=== PATIENT | male | born 1975 ===

== ENCOUNTER 2018-11-19 11:16 | Emergency (ER) | payer BC ==
[2018-11-19 11:32] VITALS: BP 161/97
--- NOTE | 2018-11-19 11:37 | UC ---
Elbow Pain - HPI Summary HPI Summary: 43 yo male presents with LEFT elbow redness and swelling for the last 2 days. 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 The worst of the scabs and healing blisters are on her left proximal forearm. Over the last 2 days has noticed redness and swelling to his left elbow that is mildly tender. He has not taken anything OTC for this. Denies fever, chills, or decreased ROM. - History of Current Complaint Chief Complaint: UCGeneralIllness Stated Complaint: JOINT PAIN Time Seen by Provider: 11/19/18 11:36 Hx Obtained From: Patient Severity Initially: Mild Severity Currently: Moderate Pain Intensity: 3 Pain Scale Used: 0-10 Numeric - Allergies/Home Medications Allergies/Adverse Reactions: Allergies Allergy/AdvReac Type Severity Reaction Status Date / Time Penicillins Allergy Rash Verified 11/19/18 11:32 PMH/Surg Hx/FS Hx/Imm Hx - Additional Past Medical History Additional PMH: None - Surgical History Surgical History: None - Family History Known Family History: Positive: None - Social History Occupation: Employed Full-time Lives: With Family Alcohol Use: Occasionally Substance Use Type: None Smoking Status (MU): Never Smoked Tobacco Review of Systems All Other Systems Reviewed And Are Negative: Yes Constitutional: Positive: Negative Skin: Positive: Other - Redness and swelling left elbow Respiratory: Positive: Negative Cardiovascular: Positive: Negative Neurovascular: Positive: Negative Musculoskeletal: Positive: Other: - Redness and swelling left elbow Neurological: Positive: Negative Psychological: Positive: Negative Physical Exam - Summary Physical Exam Summary: GENERAL: NAD. WDWN. No pain distress. SKIN: LEFT ELBOW: Moderate erythema and mild edema at olecranon bursa. Mild warmth. At proximal left forearm that is moderate healing scabs from the parsnip exposure without drainage, edema, erythema, or tenderness. CHEST: No accessory muscle use. Breathing comfortably and in no distress. CV: Pulses intact radial and ulnar. Cap refill <2seconds MSK: LEFT ELBOW: FROM without pain. 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 NEURO: Alert. Sensations intact hand and all fingers. PSYCH: Age appropriate behavior. Triage Information Reviewed: Yes Vital Signs: Initial Vital Signs Temp 99.9 F 11/19/18 11:28 Pulse 90 11/19/18 11:28 Resp 18 11/19/18 11:28 BP 161/97 11/19/18 11:28 Pulse Ox 97 11/19/18 11:28 Vital Signs Reviewed: Yes Elbow Pain Course/Dx - Course Course Of Treatment: Cellulitis vs early septic bursitis. XR elbow: IMPRESSION: SOFT TISSUE SWELLING, NO FOCAL OSSEOUS ABNORMALITY. He is afebrile and has FROM of the elbow with no pain - therefore will treat him with po Clindamycin. Advised that if he develops worsening redness/swelling , develops a fever, or has decreased ROM to the elbow to go to the ER. Pt voiced understanding and agrees with the plan. - Differential Dx/Diagnosis Provider Diagnosis: Cellulitis of left elbow Discharge - Sign-Out/Discharge Documenting (check all that apply): Patient Departure All imaging exams completed and their final reports reviewed: Yes - Discharge Plan Condition: Stable Disposition: HOME Prescriptions: Clindamycin Cap(NF) [Clindamycin Cap 300 mg Cap(NF)] 300 mg PO TID #21 cap Patient Education Materials: Cellulitis (DC), Elbow Bursitis (ED) Referrals: No Primary Care Phys,NOPCP [Primary Care Provider] - Additional Instructions: If you develop a fever, shortness of breath, chest pain, new or worsening symptoms - please call your PCP or go to the ED immediately. Your blood pressure was high at todays visit. Please see your primary provider within 4 weeks for recheck and re-evaluation. IF you develop worsening redness/swelling, develop a fever, or have decreased ROM to the elbow --- please go to the ER immediately. - Billing Disposition and Condition Condition: STABLE Disposition: Home
== END 2018-11-19 12:21 | disposition home or self-care (01) ==
LOC: UCEAST 11:16
DX: L03.114 Cellulitis of left upper limb (principal); Z88.0 Allergy status to penicillin
CPT/HCPCS: 99202; G0463

== ENCOUNTER 2018-12-11 19:40 | Emergency (ER) | payer BC ==
[2018-12-11] MEDS ORDERED: Tetan/Diph/Pertus SYR(Tdap)* 0.5 ML SYR(BOOSTRIX) use SYR IM ONE (20:48)
[2018-12-11] MEDS ORDERED: Sulfamethox/Trimethoprim DS 800/160* TAB PO ONE (21:16)
--- NOTE | 2018-12-11 21:17 | ED ---
Skin Complaint - HPI Summary HPI Summary: Patient complains of triple fishhook embedded in volar surface of distal phalanx of third digit of right hand. Denies any other pain injury or symptoms. Tetanus status unknown. - History of Current Complaint Chief Complaint: EDExtremityUpper Time Seen by Provider: 12/11/18 20:43 Stated Complaint: FISH HOOK IN RIGHT HAND PER PT Hx Obtained From: Patient Onset/Duration: Started Hours Ago Skin Exposure Onset/Duration: Hours Ago Timing: Constant Onset Severity: Mild Current Severity: Mild Pain Intensity: 2 Pain Scale Used: 0-10 Numeric Skin Location: Discrete Aggravating Symptom(s): Nothing Alleviating Symptom(s): Nothing Associated Signs & Symptoms: Negative - Allergy/Home Medications Allergies/Adverse Reactions: Allergies Allergy/AdvReac Type Severity Reaction Status Date / Time Penicillins Allergy Rash Verified 12/11/18 19:44 PMH/Surg Hx/FS Hx/Imm Hx Endocrine/Hematology History: Denies: Hx Diabetes, Hx Thyroid Disease Cardiovascular History: Denies: Hx Hypertension Respiratory History: Denies: Hx Asthma, Hx Chronic Obstructive Pulmonary Disease (COPD) GI History: Denies: Hx Ulcer History: Denies: Hx Dialysis Sensory History: Denies: Hx Eye Prosthesis Opthamlomology History: Denies: Hx Legally Blind EENT History: Denies: Hx Deafness Neurological History: Denies: Hx Developmental Delay Psychiatric History: Denies: Hx Autism Infectious Disease History: No Infectious Disease History: Denies: Hx Hepatitis, Hx Human Immunodeficiency Virus (HIV), Traveled Outside the [place] in Last 30 Days - Family History Known Family History: Positive: None - Social History Alcohol Use: Occasionally Substance Use Type: Reports: None Smoking Status (MU): Never Smoked Tobacco Review of Systems Constitutional: Negative Eyes: Negative ENT: Negative Cardiovascular: Negative Respiratory: Negative Gastrointestinal: Negative Genitourinary: Negative Musculoskeletal: Negative Skin: Other Neurological: Negative Psychological: Normal All Other Systems Reviewed And Are Negative: Yes Physical Exam - Summary Physical Exam Summary: [place] and volar surface of distal phalanx of third digit of right hand. No ecchymosis, erythema, deformity, swelling, purulent drainage, extra warmth. PMS intact. Posterior, carlos a clipped off and then RETRACTED. WE'LL SUCCESSFULLY. Vital Signs On Initial Exam: Initial Vitals Temp Pulse Resp BP Pulse Ox 96.4 F 67 18 126/70 96 12/11/18 19:43 12/11/18 19:43 12/11/18 19:43 12/11/18 19:43 12/11/18 19:43 Diagnostics - Vital Signs Vital Signs Temp Pulse Resp BP Pulse Ox 12/11/18 19:43 96.4 F 67 18 126/70 96 - Laboratory Lab Statement: Any lab studies that have been ordered have been reviewed, and results considered in the medical decision making process. Course/Dx - Course Course Of Treatment: Patient complains of triple fishhook embedded in volar surface of distal phalanx of third digit of right hand. Denies any other pain injury or symptoms. Tetanus status unknown. Vital signs within normal limits. Tetanus booster administered. [place] removed successfully. Patient refused x-ray to rule out bony injury and foreign body retention. Rx for Bactrim. - Diagnoses Provider Diagnoses: Fish hook injury of finger of right hand Discharge - Sign-Out/Discharge Documenting (check all that apply): Patient Departure Patient Received Moderate/Deep Sedation with Procedure: No - Discharge Plan Condition: Stable Disposition: AGAINST MEDICAL ADVICE Prescriptions: Sulfamethox/Trimethoprim DS* [Bactrim DS 800/160 TAB*] 1 tab PO BID 5 Days #10 tab Patient Education Materials: Soft Tissue Foreign Body (ED) Referrals: No Primary Care Phys,NOPCP [Primary Care Provider] - Additional Instructions: Take antibiotics as directed. Keep wound clean and dry. Do not submerge for a few days. May wash with warm running water and soap. Return to the ED for any new or worsening symptoms. - Billing Disposition and Condition Condition: STABLE Disposition: Against Medical Advice
[2018-12-11 21:51] VITALS: BP 110/65
== END 2018-12-11 21:50 | disposition left against medical advice (07) ==
LOC: ED 19:40
DX: S60.452A Superficial foreign body of right middle finger, initial encounter (principal); X58.XXXA Exposure to other specified factors, initial encounter
CPT/HCPCS: 90471; 90715; 99282; A9270-GY